=== PATIENT | male | born 1970 | race Caucasian/White ===

== ENCOUNTER → 2016-10-09 | Outpatient (CLI) | payer MEDICARE | END | disposition home or self-care (01) | LOC: RADMRIMAIN 06:56 | PROVIDERS: ATTEND Orthopaedic Surgery Orthopaedic Surgery of the Spine | DX: Z53.9 Procedure and treatment not carried out, unspecified reason (principal) ==

== ENCOUNTER → 2016-10-13 | Outpatient (CLI) | payer MEDICARE ==
[2016-10-13 07:45] LABS: Blood Urea Nitrogen 14 mg/dL (9-20); Non-African American GFR(MDRD) >60 (>60 ml/min/1.73 sqM)
--- NOTE | 2016-10-13 11:20 | MR ---
EXAMINATION TYPE: MR lumbar spine wo con DATE OF EXAM: 10/13/2016 11:07 AM COMPARISON: NONE HISTORY: Low back pain, injury 3 weeks ago TECHNIQUE: T2 axial and sagittal images of the lumbar spine are submitted. Due to the artifact and poor resolution of the images the exam was terminated. Patient may benefit from either an open magnet or 1.5 Elise magnet. FINDINGS: There is markedly poor resolution with artifact resulting in nearly nondiagnostic exam. Exa m was terminated due to the poor resolution. Appears to be postsurgical change at L3-L4. Based on the sagittal images provided with question a disc bulge at T12-L1 and L1-L2. IMPRESSION: 1. Examination to be discontinued due to the poor resolution of the images. 2. Postsurgical changes. 3. Findings suggest disc bulging at T12-L1 and L1-L2 with possible canal stenosis.
== END | disposition home or self-care (01) ==
LOC: RADMRIMAIN 07:13
PROVIDERS: ATTEND Orthopaedic Surgery Orthopaedic Surgery of the Spine
DX: M54.5 Low back pain (principal); G89.21 Chronic pain due to trauma; M62.830 Muscle spasm of back; M62.81 Muscle weakness (generalized); M51.36 Other intervertebral disc degeneration, lumbar region; Z98.1 Arthrodesis status; M54.2 Cervicalgia; M47.12 Other spondylosis with myelopathy, cervical region; M50.320 Other cervical disc degeneration, mid-cervical region, unspecified level; M43.22 Fusion of spine, cervical region
CPT/HCPCS: 36415; 72148; 82565; 84520

== ENCOUNTER → 2018-01-07 | Outpatient (CLI) | payer MEDICARE ==
--- NOTE | 2018-01-07 15:04 | CT ---
EXAMINATION TYPE: CT angio head DATE OF EXAM: 01/07/2018 2:48 PM COMPARISON: NONE HISTORY: Thundercl[place] headache CT DLP: 1547.8 mGycm Automated exposure control for dose reduction was used. TECHNIQUE: Performed without and with IV Contrast, patient injected with 100 mL of Isovue 370. Three-D reconstructed images performed separately on the ventricular computer by the technologist are reviewed. Source images are reviewed and felt to be more diagnostic in this circumstance. FINDINGS: The internal carotid arteries bifurcate into A1 and M1 segments. The A2 segments appear normal. The a nterior communicating artery is identified on source images. Artifact is evident on the Three-D recon structed images between the A1 segments appears to be related to the pituitary stalk osseous structur es. The middle cerebral artery branches appear normal. No aneurysmal dilatation is evident. Vertebral arteries appear normal. The basilar artery appears normal. The posterior cerebral vascular structure s extending from the cerebral artery are normal. IMPRESSION: NO SUSPICIOUS CHANGES FOR ANEURYSM.
== END | disposition home or self-care (01) ==
LOC: RADCTMAIN 14:09
PROVIDERS: ATTEND Physician Assistant
DX: G44.53 Primary thunderclap headache (principal)
CPT/HCPCS: 70496; Q9967

== ENCOUNTER → 2019-02-19 | Outpatient (CLI) | payer MEDICARE ==
--- NOTE | 2019-02-19 11:30 | CONS ---
CONSULTATION DATE OF SERVICE: 02/19/2019 A 48-year-old gentleman who has been evaluated in the Sleep Center for obstructive sleep apnea-hypopnea syndrome. HISTORY OF PRESENT ILLNESS/SLEEP-WAKE EVALUATION: Patient had been diagnosed with obstructive sleep apnea in 2004 in [place]. Since that time, he is on treatment on CPAP. The last CPAP titration done about 5 years ago. For the last years, patient changed weight and recently started to snore while using his machine and the quality of sleep again started to be bad. His sleep schedule on weekdays and on weekend basically 7 days a week from midnight - 1 am until about 11 am. Sometimes he has problem with falling asleep. He has TV set in bedroom, usually sleeps on the stomach position. He wakes up from sleep 3 times with 2 episodes of nocturia. In the morning, he wakes up tired, has difficulties to pay attention, falling asleep during the day, has problem mainly with concentration, irritability, depression, anxiety and sexual dysfunction. [place] Sleepiness Scale significantly increased to 13. PAST MEDICAL HISTORY: Positive for hypertension, low testosterone level. PAST SURGICAL HISTORY: Status post fall and spinal injury and subsequent fusion at the level of C5-C7 in 2011 and L1-L4 in 2013. MEDICATIONS: Testosterone, injection once in 2 weeks, lisinopril, hydrochlorothiazide. SOCIAL HISTORY: Positive for smoking a few cigarettes a day for 10 years, quit in 2011. Alcohol consumption none. FAMILY HISTORY: Hypertension, arthritis, asthma, sinus headaches, and sleep apnea. PHYSICAL EXAM: gentleman without distress. BP 145/104, HR 69, RR 16, height 6 foot, 3-1/2 inches, weight 396.6 pounds, body mass index 48.2, temp is 98.2, oxygen saturation at room air 96%. OROPHARYNX: Extremely low position of soft palate. Mallampati 4. Wide neck 22 inches in circumference, restriction of nasal breathing. ABDOMEN: Obese. Neck Supple, no JVD. Thyroid is not palpable. LUNGS Clear to percussion and to auscultation. Good air exchange. No wheezing or rhonchi. HEART S1, S2 regular. No murmurs, gallops, or rubs. EXTREMITIES No clubbing or cyanosis. FORENSIC EXAMINER Awake, alert, and oriented X3. Cranial nerves 2 to 7 intact. There is no fasciculation or atrophy. noted. No focal deficits observed. IMPRESSION: 1. History of obstructive sleep apnea for about 13 years. Patient continued to use CPAP equipment, but recently again started to have snoring with the machine and awakenings from sleep with choking and nocturia. sleepiness. Cisco Sleepiness Scale increased to 13, obstructive sleep apnea-hypopnea syndrome. 2. Obesity, body mass index 48.2. 3. Status post spinal injury secondary to fall with fusion of level C5-C7 in 2011 and L1-L4 in 2013 and subsequent disability for that reason. 4. Low testosterone level, on testosterone shots. 5. Hypertension, not on perfect control on 2 medications. PLAN: 1. We will try to get results of previous sleep studies from [place]. 2. Difficulties to get results of sleep studies. 3. We will proceed with polysomnogram for evaluation of patient breathing during the sleep. 4. CPAP retitration for evaluation of effective CPAP pressure at the present time, patient increased weight, start to have snoring while using his CPAP equipment. 5. Losing weight. 6. Sleep hygiene with regular time in bed for at least 8 hours. 7. No driving if feeling sleepiness. 8. Prescription for all necessary CPAP supplies. Thank you very much for referring this patient for consultation. Sincerely, Tez Gongora MD, PhD, FAASM Diplomat of [place] [employer] Laboratory Director of [facility] [place] RUSTY / BENJAMIN: [id number] /
== END | disposition home or self-care (01) ==
LOC: SLEEP 09:56
PROVIDERS: ATTEND Internal Medicine
DX: G47.33 Obstructive sleep apnea (adult) (pediatric) (principal); E29.1 Testicular hypofunction; I10 Essential (primary) hypertension; E66.9 Obesity, unspecified; Z68.42 Body mass index [BMI] 45.0-49.9, adult; Z73.6 Limitation of activities due to disability; Z79.899 Other long term (current) drug therapy; Z87.891 Personal history of nicotine dependence; Z98.1 Arthrodesis status; Z99.89 Dependence on other enabling machines and devices
CPT/HCPCS: 99211

== ENCOUNTER → 2019-06-11 | Outpatient (CLI) | payer MEDICARE ==
--- NOTE | 2019-06-11 18:56 | PN ---
PROGRESS NOTE DATE OF SERVICE: 06/11/2019 48-year-old gentleman has been followed in Sleep Center after he received his new CPAP unit. We did CPAP titration which showed that patient respiration fully normalized at the pressure of 12 cm of water. He likes his new CPAP unit. He is able to use it every night for the whole night. He sleeps well with that. No problems related to mask fitting, pressure and humidification. [place] Sleepiness Scale today is 13. I checked his CPAP unit, range of the pressure 5-15, average pressure 13.8. Leak is 5 L/minute, which is very good number. Apnea-hypopnea index reading only 1.6, which is absolutely perfect. Usage is 100% of nights more than 4 hours with average usage 7.2 hours per night. MEDICATIONS: Lisinopril, hydrochlorothiazide, testosterone injections. PHYSICAL EXAM: Patient in no distress. BP 148/80, HR 90, RR 18, weight 390.2 pounds, temperature 98.1, oxygen saturation at room air 96%. HEENT: Oropharynx extremely low position of soft palate, Mallampati 4. NECK: Supple, no JVD. Thyroid is not palpable. LUNGS: Clear to percussion and to auscultation. Good air exchange. No wheezing or rhonchi. HEART: S1, S2 regular. No murmurs, gallops, or rubs. ABDOMEN: Obese. Soft and nontender. Bowel sounds are present. No organomegaly appreciated. EXTREMITIES: No clubbing or cyanosis. CLINICAL FIELD SPECIALIST: Awake, alert, and oriented X3. Cranial nerves 2 to 7 intact. There is no fasciculation or atrophy. noted. No focal deficits observed. IMPRESSION: 1. Obstructive sleep apnea-hypopnea syndrome. The patient demonstrated 100% compliance with treatment, benefitting all with treatment. Full normalization of his respiration on treatment with CPAP. 2. Obesity. 3. Status post spinal injury secondary to fall with fusion level C5-C7 in 2011 and L1- L4 in 2013. 4. Low testosterone level, on testosterone shots. 5. Hypertension. 6. Extreme amount of periodic limb movements during titration 90.5 per hour with 1.2 microarousals per hour. PLAN: 1. Patient will continue to use CPAP equipment every night for the whole night. 2. Losing weight. 3. Sleep hygiene with regular time in bed for at least 7.5 to 8 hours. 4. No driving if feeling sleepiness. 5. I will start patient on small dose of Mirapex to prevent periodic limb movements because leg movements wake him up. 6. No driving if feeling sleepiness. Thank you very much for allowing me to participate in management of your patient. Sincerely, Tez Gongora MD, PhD, FAASM Diplomat of [place] [employer] Specialties [employer] of [employer] Medicine Accredited Farm Manager of [facility] [place] MMODL / NADEGEN: [id number] /
== END | disposition home or self-care (01) ==
LOC: SLEEP 15:49
PROVIDERS: ATTEND Internal Medicine
DX: G47.33 Obstructive sleep apnea (adult) (pediatric) (principal); E66.9 Obesity, unspecified; I10 Essential (primary) hypertension; G47.61 Periodic limb movement disorder; E29.1 Testicular hypofunction; Z98.1 Arthrodesis status; Z99.89 Dependence on other enabling machines and devices; Z79.899 Other long term (current) drug therapy

== ENCOUNTER → 2020-09-28 | Outpatient (CLI) | payer MEDICARE ==
--- NOTE | 2020-09-28 18:53 | SFUN ---
SLEEP CENTER FOLLOW UP NOTE DATE OF SERVICE: 09/28/2020 This 50-year-old gentleman has been followed in Sleep Center for treatment of obstructive sleep apnea-hypopnea syndrome. The last time I saw this patient was more than one year ago. He continues to use his CPAP equipment every night and sleeps well with the machine. [place] Sleepiness Scale is 10. I checked his CPAP unit. It is in automatic regimen with a pressure of 5 to 15 cm of water. Average pressure is 12.1 cm of water. Usage is 29/30 nights for more than 4 hours with average usage 7.7 hours per night. Leak is 18 L/minute, which is borderline. Apnea-hypopnea index is only 1.4, which is perfect. The patient is using a full-face Simplus large mask. MEDICATIONS: Metformin 1000 mg once a day, hydrochlorothiazide 25 mg once a day, lisinopril 20 mg once a day, bupropion 150 mg once a day, atorvastatin 10 mg once a day, allopurinol 100 mg once a day, 100 mg once a day. PHYSICAL EXAMINATION: GENERAL: A pleasant patient in no distress. VITAL SIGNS: BP 119/84, HR 90, RR 15, height 6 feet 2-1/2 inches, weight 373 pounds, which is 17 pounds less than during the previous visit, body mass index 47.8, temperature 98.9, oxygen saturation at room air 95%. HEENT: PERRLA, EOMI. Evaluation of oropharynx showed tongue protrudes midline. Extremely low position of soft palate. Mallampati IV. NECK: Supple. No JVD. Thyroid is not palpable. LUNGS: Clear to percussion and to auscultation. Good air exchange. No wheezing or rhonchi. HEART: S1, S2 regular. No murmurs, gallops or rubs. ABDOMEN: Soft and nontender. Bowel sounds are present. No organomegaly appreciated. EXTREMITIES: No clubbing or cyanosis. FILLER ROOM ATTENDANT: Awake, alert, and oriented X3. Cranial nerves 2 to 7 intact. There is no fasciculation or atrophy. noted. No focal deficits observed. IMPRESSION: 1. Obstructive sleep apnea-hypopnea syndrome. Patient demonstrated great compliance with treatment. Normal respiration on CPAP. 2. Morbid obesity. BMI 47.8. Patient lost 13 pounds. 3. Status post spinal injury secondary to fall with fusion on the levels C5-C7 and L1- L4. 4. History of low testosterone level. 5. Hypertension. 6. Severe periodic limb movements during titration. PLAN: 1. Patient will continue to use PAP equipment every night for the whole night. 2. Sleep hygiene with regular time in bed for at least 7-1/2 to 8 hours. 3. Precautions related to driving. No driving if feeling sleepiness. 4. I will maintain all necessary prescription for PAP supplies including mask, tube, filters. 5. Watching weight. 6. No driving if feeling sleepiness. 7. Follow-up visit in 6 months or earlier if patient has any problems. Thank you very much for allowing me to participate in the management of your patient. Sincerely, Tez Gongora MD, PhD, FAASM Diplomat of [place] [employer] Specialties [place] [employer] [employer] of Internal Medicine Beer Coil Cleaner of [facility] [place] MMBLAKEL / NADEGEN: [id number] /
== END | disposition home or self-care (01) ==
LOC: SLEEP 11:29
PROVIDERS: ATTEND Internal Medicine
DX: G47.33 Obstructive sleep apnea (adult) (pediatric) (principal); G47.61 Periodic limb movement disorder; I10 Essential (primary) hypertension; Z79.899 Other long term (current) drug therapy; Z79.4 Long term (current) use of insulin; E66.01 Morbid (severe) obesity due to excess calories; Z68.42 Body mass index [BMI] 45.0-49.9, adult; Z98.1 Arthrodesis status; Z87.898 Personal history of other specified conditions

== ENCOUNTER → 2021-05-04 | Outpatient (CLI) | payer MEDICARE ==
--- NOTE | 2021-05-04 12:14 | SFUN ---
SLEEP CENTER FOLLOW UP NOTE DATE OF SERVICE: 05/04/2021 This 50-year-old gentleman has been followed in Sleep Center for treatment of obstructive sleep apnea-hypopnea syndrome. The patient continues to use CPAP equipment every night for the whole night. He cannot sleep without the machine. He sleeps definitely better with the machine and feels better during the day. [place] Sleepiness Scale is still slightly increased at 12 today. I checked his CPAP unit. Range of the pressure is 5-15, average pressure 13.6, usage 30/30 nights for more than 4 hours. Average usage 8.3 hours per night. Leak is 2 L/minute. Apnea-hypopnea index is 1.2, which is absolutely perfect. MEDICATIONS: 1. Metformin 1000 mg once a day. 2. Hydrochlorothiazide 25 mg once a day. 3. Lisinopril 20 mg once a day. 4. Bupropion 150 mg once a day. 5. Atorvastatin 10 mg once a day. 6. Allopurinol 100 mg once a day. PHYSICAL EXAMINATION: GENERAL: Pleasant patient in no distress. VITAL SIGNS: BP 158/93, HR 79, RR 15, height 6 feet 3 inches, weight 376.4 pounds, body mass index 46.9, oxygen saturation at room air 97%. HEENT: PERRLA, EOMI, evaluation of oropharynx showed tongue protrudes midline. Extremely low position of soft palate; Mallampati IV. NECK: Supple, no JVD. Thyroid is not palpable. LUNGS: Clear to percussion and to auscultation. Good air exchange. No wheezing or rhonchi. HEART: S1, S2 regular. No murmurs, gallops, or rubs. ABDOMEN: Obese. EXTREMITIES: No clubbing or cyanosis. EDUCATIONAL PSYCHOLOGIST: Awake, alert, and oriented X3. Cranial nerves 2 to 7 intact. There is no fasciculation or atrophy. noted. No focal deficits observed. IMPRESSION: 1. Obstructive sleep apnea-hypopnea syndrome. Patient demonstrated 100% compliance with treatment, benefitting from treatment. 2. Obesity. BMI 46.9. 3. Status post spinal injury secondary to fall with fusion on the level C5-C7 and L1- L4. 4. History of low testosterone level. 5. Hypertension. 6. Severe periodic limb movements during the sleep study. PLAN: 1. Patient will continue to use PAP equipment every night for the whole night. 2. Sleep hygiene with regular time in bed for at least 7-1/2 to 8 hours. 3. Precautions related to driving. No driving if feeling sleepiness. 4. I will maintain all necessary prescription for PAP supplies including mask, tube, filters. 5. Watching weight. 6. Follow-up visit in 6 months or earlier if patient has any problems. Thank you very much for allowing me to participate in the management of your patient. Sincerely, Tez Gongora MD, PhD, FAASM Diplomat of [place] [employer] Specialties Sleep Medicine Board of [place] Board of Internal Medicine Cadmium Liquor Maker of [facility] [place] MMODL / NADEGEN: [id number] /
== END ==
LOC: SLEEP 11:03
PROVIDERS: ATTEND Internal Medicine
DX: G47.33 Obstructive sleep apnea (adult) (pediatric) (principal); E66.9 Obesity, unspecified; Z68.42 Body mass index [BMI] 45.0-49.9, adult; I10 Essential (primary) hypertension; G47.61 Periodic limb movement disorder; Z87.828 Personal history of other (healed) physical injury and trauma; Z86.39 Personal history of other endocrine, nutritional and metabolic disease; Z79.899 Other long term (current) drug therapy; Z99.89 Dependence on other enabling machines and devices; Z88.1 Allergy status to other antibiotic agents; Z88.2 Allergy status to sulfonamides

== ENCOUNTER → 2021-11-23 | Outpatient (CLI) | payer MEDICARE ==
--- NOTE | 2021-11-23 18:07 | SFUN ---
SLEEP CENTER FOLLOW UP NOTE DATE OF SERVICE: 11/23/2021 This 51-year-old gentleman has been followed in Sleep Center for treatment of obstructive sleep apnea-hypopnea syndrome. The patient continues to use his CPAP equipment every night and is getting his supplies on time. No snoring with the machine. The patient still has some episodes of awakenings in the middle of the night and has leg movements, according to his . I checked his CPAP unit. Pressure is 5 to 15 cm of water, average 11.6 cm of water, usage 30/30 nights for more than 4 hours, average 7.2 hours per night, which is great compliance. Leak is 10 L/minute, which is within normal range. Apnea-hypopnea index is 1.3, which is totally normal. MEDICATIONS: 1. Lisinopril 20 mg once a day. 2. Metformin 1000 mg once a day. 3. Hydrochlorothiazide 25 mg once a day. 4. Bupropion 150 mg once a day. 5. Atorvastatin 10 mg once a day. 6. Allopurinol 100 mg once a day. PHYSICAL EXAMINATION: GENERAL: Pleasant patient in no distress. VITAL SIGNS: BP 133/82, HR 84, RR 18, weight 369.2 pounds, which is 7 pounds less than during previous visit. Temperature 96.7, oxygen saturation at room air 94%. HEENT: PERRLA, EOMI, evaluation of oropharynx showed tongue protrudes midline. Extremely low position of soft palate; Mallampati IV. NECK: Supple, no JVD. Thyroid is not palpable. LUNGS: Clear to percussion and to auscultation. Good air exchange. No wheezing or rhonchi. HEART: S1, S2 regular. No murmurs, gallops, or rubs. ABDOMEN: Obese. EXTREMITIES: No clubbing or cyanosis. ASSOCIATE PROFESSOR COMPUTER SCIENCE: Awake, alert, and oriented X3. Cranial nerves 2 to 7 intact. There is no fasciculation or atrophy. noted. No focal deficits observed. IMPRESSION: 1. Obstructive sleep apnea-hypopnea syndrome. Patient demonstrated 100% compliance with treatment, benefitting from treatment. He has some awakenings in the middle of the night sometimes. 2. Severe periodic limb movements during the sleep test. The patient continues to have significant movements during the night. 3. Obesity. 4. Status post spinal injury with fusion at the level of C5-C7 and L1-L4. 5. Hypertension. 6. History of low testosterone level. PLAN: 1. I adjusted the pressure in the machine to the level of 5 to 19. 2. I will start the patient on Mirapex 0.125 mg 1-2 tablets at bedtime to prevent periodic limb movements. 3. Patient will continue to use PAP equipment every night for the whole night. 4. Sleep hygiene with regular time in bed for at least 7-1/2 to 8 hours. 5. Precautions related to driving. No driving if feeling sleepiness. 6. I will maintain all necessary prescription for PAP supplies including mask, tube, filters. 7. Watching weight. 8. Follow-up visit in 6 months or earlier if patient has any problems. Thank you very much for allowing me to participate in the management of your patient. Sincerely, Tez Gongora MD, PhD, FAASM Diplomat of [place] Specialties Sleep Medicine Board of [place] Board of Internal Medicine Director Of Field Service of [facility] [place] MMODL / NADEGEN: [id number] /
== END ==
LOC: SLEEP 14:00
PROVIDERS: ATTEND Internal Medicine
DX: G47.33 Obstructive sleep apnea (adult) (pediatric) (principal); G47.61 Periodic limb movement disorder; E66.9 Obesity, unspecified; I10 Essential (primary) hypertension; Z86.39 Personal history of other endocrine, nutritional and metabolic disease; Z99.89 Dependence on other enabling machines and devices; Z88.2 Allergy status to sulfonamides; Z88.1 Allergy status to other antibiotic agents

== ENCOUNTER → 2022-06-06 | Outpatient (CLI) | payer MEDICARE ==
--- NOTE | 2022-06-06 16:09 | P.PN ---
Subjective DATE: 06/06/2022 FOLLOW UP VISIT. Patient with obstructive sleep apnea hypopnea syndrome return to sleep center for follow-up visit. Information from previous visit have been reviewed. Patient is using PAP equipment every night for the whole night, getting PAP supplies in time. The patient does not have significant problems with the mask, PAP unit and humidification. [place] sleepiness scale is increased to 13. I checked PAP unit. PAP unit pressure 5-19, average 13.7 cm H2O. Usage is 100 % for more then 4 hours, average 7.6 hours per night. Leak is 8 l/m, which is in acceptable range. Apnea Hypopnea Index is 1.3, which is normal. MEDICATIONS:1. Metformin 1000 mg once a day 2. Lisinopril 20 mg once a day 3. Hydrochlorothiazide 25 mg once a day 4. Bupropion 150 mg once a day 5. Atorvastatin 10 mg once a day 6. Allopurinol 100 mg once a day During physical exam: GENERAL: A pleasant patient without any distress. VITAL SIGNS: BP 135/82, HR 76, RR 16 , weight 373.2, temperature 97.2, oxygen saturation at room air 96 % . HEENT: PERRLA, EOMI.low position of soft palate, Mallapati 4 . NECK: Supple. No JVD. LUNGS: Clear to percussion and to auscultation. Good air exchange. No wheezing or rhonchi. HEART: S1, S2 regular. ABDOMEN: Soft and nontender. Obese EXTREMITIES: No clubbing or cyanosis. SAUSAGE TIER: Awake, alert, and oriented x3. No focal deficit. Impressions: 1. Obstructive sleep apnea-hypopnea syndrome. Patient demonstrated great compliance with treatment, benefiting from treatment. 2. Obesity. 3. History of periodic limb movements. 4. Hypertension. 5. Status post spinal injury with the infusion at the level C5-C7 and L1- L4. 6. History of low testosterone level. Plan: 1. Continue using PAP equipment every night for the whole night. 2. To change air filter at least 1-2 times per month. 3. PAP unit should stay lower then position of the head. 4. Advised patient to remove all remaining water from humidifier canister daily and make it dry after each usage. Refill canister with fresh distilled water before each usage. 5. Sleep hygiene with regular time in bed for at least 8 hours. 6. Precautions related to driving. No driving if feel any sleepiness. 7. I will maintain prescription for PAP supplies including mask, tube, filters. 8. Follow up visit in 6 months or earlier if patient has any problems. 9. Losing weight. Thank you very much for allowing me to participate in the management of your patient. Tez Gongora MD, PhD, FAASM. Diplomat of [place] Board of Sleep Medicine, Sleep Medicine Board by [place] Board of Internal Medicine Formal Wear Rental Clerk of [facility] [place]
== END ==
LOC: SLEEP 14:55
PROVIDERS: ATTEND Internal Medicine
DX: G47.33 Obstructive sleep apnea (adult) (pediatric) (principal); Z99.89 Dependence on other enabling machines and devices; E66.9 Obesity, unspecified; I10 Essential (primary) hypertension; G47.61 Periodic limb movement disorder; Z86.39 Personal history of other endocrine, nutritional and metabolic disease; Z98.890 Other specified postprocedural states; Z88.1 Allergy status to other antibiotic agents

== ENCOUNTER → 2022-12-26 | Outpatient (CLI) | payer MEDICARE ==
--- NOTE | 2022-12-26 11:02 | P.PN ---
Subjective DATE: 12/26/2022 FOLLOW UP VISIT. Patient with obstructive sleep apnea hypopnea syndrome return to sleep center for follow-up visit. Information from previous visit have been reviewed. Restless leg symptoms. Patient is using PAP equipment every night for the whole night, getting PAP supplies in time. The patient does not have significant problems with the mask, PAP unit and humidification. [place] sleepiness scale is slightly increased to 12. I checked information from PAP unit. PAP unit pressure 5-19, average 12.7 cm H2O. Usage is 100 % for more then 4 hours, average 7.8 hours per night. Leak is 4 l/m, which is in acceptable range. Apnea Hypopnea Index is 1.3, which is normal. MEDICATIONS:1. Metformin 1000 mg once a day 2. Lisinopril 20 mg once a day 3. Hydrochlorothiazide 25 mg once a day 4. Atorvastatin 10 mg once a day During physical exam: GENERAL: A pleasant patient without any distress. VITAL SIGNS: BP 138/82, HR 72, RR 18, weight 365, temperature 97.8, oxygen saturation at room air 96 % . HEENT: PERRLA, EOMI.low position of soft palate, Mallapati 4 . NECK: Supple. No JVD. LUNGS: Clear to percussion and to auscultation. Good air exchange. No wheezing or rhonchi. HEART: S1, S2 regular. ABDOMEN: Soft and nontender. Obese EXTREMITIES: No clubbing or cyanosis. ENGINEER GAS PUMPING STATION: Awake, alert, and oriented x3. No focal deficit. Impressions: 1. Obstructive sleep apnea-hypopnea syndrome. Patient demonstrated great compliance with treatment, benefiting from treatment. 2. Restless leg symptoms and periodic limb movements. 3. Obesity, patient lost 8 pounds since previous visit. 4. Hypertension. 5. Status post spinal injury with fusion at the level of C5- C7 and L1- L4. 6. History of low testosterone level. Plan: 1. Continue using PAP equipment every night for the whole night. 2. Prescription for Mirapex 0.125 mg 1-2 tablets at bedtime. 3. PAP unit should stay lower then position of the head. 4. Advised patient to remove all remaining water from humidifier canister daily and make it dry after each usage. Refill canister with fresh distilled water before each usage. 5. Sleep hygiene with regular time in bed for at least 8 hours. 6. Precautions related to driving. No driving if feel any sleepiness. 7. I will maintain prescription for PAP supplies including mask, tube, filters. 8. Follow up visit in 6 months or earlier if patient has any problems. 9. Watching and continue losing weight. Thank you very much for allowing me to participate in the management of your patient. Tez Gongora MD, PhD, FAASM. Diplomat of [place] [employer] Sleep Medicine, Sleep Medicine Board by [place] Board of Internal Medicine Biomedical Engineering Supervisor of [facility] [place]
== END ==
LOC: SLEEP 10:24
PROVIDERS: ATTEND Internal Medicine
DX: G47.33 Obstructive sleep apnea (adult) (pediatric) (principal); G25.61 Drug induced tics; E66.9 Obesity, unspecified; I10 Essential (primary) hypertension; Z98.890 Other specified postprocedural states; G25.81 Restless legs syndrome; G47.61 Periodic limb movement disorder; Z79.899 Other long term (current) drug therapy; Z99.89 Dependence on other enabling machines and devices; Z88.1 Allergy status to other antibiotic agents; Z88.8 Allergy status to other drugs, medicaments and biological substances
CPT/HCPCS: 99212

== ENCOUNTER → 2023-07-03 | Outpatient (CLI) | payer MEDICARE ==
--- NOTE | 2023-07-03 12:44 | P.PN ---
Subjective DATE: 07/03/2023 FOLLOW UP VISIT. Patient with obstructive sleep apnea hypopnea syndrome return to sleep center for follow-up visit. Information from previous visit have been reviewed. Patient is using PAP equipment every night for the whole night, getting PAP supplies in time. The patient does not have significant problems with the mask, PAP unit and humidification. [place] sleepiness scale is 10. I checked information from PAP unit. PAP unit pressure 5-19, average 11.7 cm H2O. Usage is 100 % for more then 4 hours, average 8.2 hours per night. Leak is on l/m, which is in acceptable range. Apnea Hypopnea Index is 1.4, which is normal. MEDICATIONS:1. Metformin 1000 mg once a day 2. Lisinopril 20 mg once a day 3. Hydrochlorothiazide 25 mg once a day 4. Atorvastatin 10 mg once a day During physical exam: GENERAL: A pleasant patient without any distress. VITAL SIGNS: BP 129/78, HR 85, RR 18 , weight 367.4, temperature 97.7, oxygen saturation at room air 95 % . HEENT: PERRLA, EOMI.low position of soft palate, Mall[place]ati 4 . NECK: Supple. No JVD. LUNGS: Clear to percussion and to auscultation. Good air exchange. No wheezing or rhonchi. HEART: S1, S2 regular. ABDOMEN: Soft and nontender. Obese EXTREMITIES: No clubbing or cyanosis. CAPACITOR REPAIRER: Awake, alert, and oriented x3. No focal deficit. I explained to the patient how to adjust humidity and the temperature in the tube. Level of humidity was increased from 2 to 4 to avoid any dryness. Impressions: 1. Obstructive sleep apnea-hypopnea syndrome. Patient demonstrated great compliance with treatment, benefiting from treatment. 2. Obesity, no significant changes of weight. 3. History of restless leg symptoms and periodic limb movements, no present complaints. 4. Hypertension. 5. History of low testosterone level. 6. Status post spinal injury with fusion at the level of C5-C7 and L1-L4. Plan: 1. Continue using PAP equipment every night for the whole night. 2. To change air filter at least 1-2 times per month. 3. PAP unit should stay lower then position of the head. 4. Advised patient to remove all remaining water from humidifier canister daily and make it dry after each usage. Refill canister with fresh distilled water before each usage. 5. Sleep hygiene with regular time in bed for at least 8 hours. 6. Precautions related to driving. No driving if feel any sleepiness. 7. I will maintain prescription for PAP supplies including mask, tube, filters. 8. Follow up visit in 6 months or earlier if patient has any problems. 9. Watching and losing weight. Thank you very much for allowing me to participate in the management of your patient. Tez Gongora MD, PhD, FAASM. Diplomat of [employer], Sleep Medicine Board by [employer] [facility] [place]
== END ==
LOC: 3 N SLEEP 11:59
PROVIDERS: ATTEND Internal Medicine
DX: G47.33 Obstructive sleep apnea (adult) (pediatric) (principal); E66.9 Obesity, unspecified; I10 Essential (primary) hypertension; G25.81 Restless legs syndrome; G47.61 Periodic limb movement disorder; Z86.39 Personal history of other endocrine, nutritional and metabolic disease; Z98.1 Arthrodesis status; Z99.89 Dependence on other enabling machines and devices; Z88.1 Allergy status to other antibiotic agents; Z88.8 Allergy status to other drugs, medicaments and biological substances; Z79.899 Other long term (current) drug therapy
CPT/HCPCS: 99212

== ENCOUNTER → 2024-02-12 | Outpatient (CLI) | payer MEDICARE ==
[2024-02-12 11:17] VITALS: BP 116/78; PULSE 71; RESP 20; TEMP 97.9
--- NOTE | 2024-02-12 11:39 | P.PROGSL ---
Subjective DATE: 02/12/2024 FOLLOW UP VISIT. Patient with obstructive sleep apnea hypopnea syndrome return to sleep center for follow-up visit. Information from previous visit have been reviewed. Patient is using PAP equipment every night for the whole night, getting PAP supplies in time. The patient does not have significant problems with the mask, PAP unit and humidification. [place] sleepiness scale is increased to 17. I checked information from PAP unit. PAP unit pressure 5-19, average 10.9 cm H2O. Usage is 100% for more then 4 hours, average 7.7 hours per night. Leak is 4 l/m, which is in acceptable range. Apnea Hypopnea Index is 1.7, which is normal. MEDICATIONS: Please see below During physical exam: GENERAL: A pleasant patient without any distress. VITAL SIGNS: Please see below, weight 347.4 pounds HEENT: PERRLA, EOMI.low position of soft palate, Mallapati 4. NECK: Supple. No JVD. LUNGS: Clear to percussion and to auscultation. Good air exchange. No wheezing or rhonchi. HEART: S1, S2 regular. ABDOMEN: Soft and nontender.[] EXTREMITIES: No clubbing or cyanosis. SPIRITUAL ADVISOR: Awake, alert, and oriented x3. No focal deficit. Impressions: 1. Obstructive sleep apnea-hypopnea syndrome. Patient demonstrated great compliance with treatment, benefiting from treatment. 2. Obesity, patient lost 20 pounds comparing with previous visit. 3. History of restless leg symptoms and periodic limb movements, no clinical complaints at the present time. 4. Hypertension. 5. History of low testosterone level. 6. Status post spinal injury with fusion at the level C5-C7 and L1-L4. Plan: 1. Continue using PAP equipment every night for the whole night. 2. To change air filter at least 1-2 times per month. 3. PAP unit should stay lower then position of the head. 4. Advised patient to remove all remaining water from humidifier canister daily and make it dry after each usage. Refill canister with fresh distilled water before each usage. 5. Sleep hygiene with regular time in bed for at least 8 hours. 6. Precautions related to driving. No driving if feel any sleepiness. 7. I will maintain prescription for PAP supplies including mask, tube, filters. 8. Follow up visit in 6 months or earlier if patient has any problems. 9. Watching and continue losing weight. Thank you very much for allowing me to participate in the management of your patient. Tez Gongora MD, PhD, FAASM. Diplomat of [place] [employer], Sleep Medicine Board by [place] [facility] [place] Objective - Vital Signs Vital Signs: Vital Signs Temp 97.9 F 02/12/24 11:15 Pulse 71 02/12/24 11:15 Resp 20 02/12/24 11:15 BP 116/78 02/12/24 11:15 Pulse Ox 92 L 02/12/24 11:15 FiO2 Intake & Output 02/11/24 02/12/24 02/12/24 18:59 06:59 18:59 Weight 157.397 kg Home Medications: Home Medications Medication Instructions Recorded Confirmed Type Albuterol Sulfate [Albuterol 2 puff PO RT-Q6H PRN 09/21/22 02/12/24 History Sulfate Hfa] Atorvastatin [Lipitor] 10 mg PO DAILY 09/21/22 02/12/24 History Budesonide/Formoterol Fumarate 2 puff INHALATION RT-BID PRN 09/21/22 02/12/24 History [Symbicort 160-4.5 Mcg Inhaler] Ibuprofen/Acetaminophen [Advil 5 tab PO Q6H PRN 09/21/22 02/12/24 History Dual Action 250Mg-125Mg] Lisinopril-Hctz 20-25 mg 1 tab PO DAILY 09/21/22 02/12/24 History [Zestoretic 20-25] buPROPion XL [Wellbutrin XL] 150 mg PO DAILY 09/21/22 02/12/24 History metFORMIN HCL [Glucophage] 1,000 mg PO BID 09/21/22 02/12/24 History Cyclobenzaprine [Flexeril] 10 mg PO TID #15 tab 09/22/22 Rx
== END ==
LOC: 3 N SLEEP 10:43
PROVIDERS: ATTEND Internal Medicine
DX: G47.33 Obstructive sleep apnea (adult) (pediatric) (principal); E66.9 Obesity, unspecified; I10 Essential (primary) hypertension; Z99.89 Dependence on other enabling machines and devices; Z87.39 Personal history of other diseases of the musculoskeletal system and connective tissue; Z98.1 Arthrodesis status; Z86.39 Personal history of other endocrine, nutritional and metabolic disease; Z87.828 Personal history of other (healed) physical injury and trauma; Z79.899 Other long term (current) drug therapy; Z88.1 Allergy status to other antibiotic agents; Z68.41 Body mass index [BMI] 40.0-44.9, adult
CPT/HCPCS: 99212